=== PATIENT | male | born 1995 | race African-American/Black ===

== ENCOUNTER 2022-01-03 14:38 | Emergency (ER) | payer OTHER, SELFPAY ==
[2022-01-03] VITALS (37 sets, daily range): BP systolic 129–145; BP diastolic 64–88; PULSE 65–114; RESP 9–28; TEMP 36.8; O2SAT 95–100
--- NOTE | ~2022-01-03 | CT_ITS ---
EXAMINATION: CT cervical spine wo con DATE: 01/03/2022 16:09 INDICATION: Fall. Seizure. TECHNIQUE: Computed tomography (CT) of the cervical spine was performed without intravenous contrast. Automated exposure control and iterative reconstruction technique were employed. The dose-length pro duct was 371.08 mGy-cm. COMPARISON: None FINDINGS: Bone alignment is normal. Vertebral body heights and intervertebral disc heights are normal . The following disc levels are specifically discussed: C2-C3: There is mild bilateral uncovertebral joint osteoarthritis. There is no facet joint osteoarthr itis. There is no neural foraminal stenosis. There is no central canal stenosis. C3-C4: There is mild bilateral uncovertebral joint osteoarthritis. There is no facet joint osteoarthr itis. There is mild left neural foraminal stenosis. There is no central canal stenosis. C4-C5: There is mild bilateral uncovertebral joint osteoarthritis. There is no facet joint osteoarthr itis. There is no neural foraminal stenosis. There is no central canal stenosis. C5-C6: There is no uncovertebral joint osteoarthritis. There is no facet joint osteoarthritis. There is no neural foraminal stenosis. There is no central canal stenosis. C6-C7: There is no uncovertebral joint osteoarthritis. There is no facet joint osteoarthritis. There is no neural foraminal stenosis. There is no central canal stenosis. C7-T1: There is no uncovertebral joint osteoarthritis. There is mild bilateral facet joint osteoarthr itis. There is no neural foraminal stenosis. There is no central canal stenosis. IMPRESSION: 1. No fracture. Reviewed, dictated and finalized at location A. IMPRESSION: 1. No fracture.
--- NOTE | ~2022-01-03 | XR_ITS ---
EXAMINATION: XR chest 1V portable DATE: 01/03/2022 15:56 INDICATION: Seizure. Fall. TECHNIQUE: A single frontal view of the chest was obtained on 2 radiographs. COMPARISON: None. FINDINGS: The chest demonstrates clear lungs without pneumonia, pleural effusion, or pneumothorax. Th e heart size is normal. IMPRESSION: 1. No acute cardiopulmonary disease. Reviewed, dictated and finalized at location A.
--- NOTE | ~2022-01-03 | CT_ITS ---
EXAMINATION: CT brain wo con DATE: 01/03/2022 16:08 INDICATION: Seizure. TECHNIQUE: Computed tomography (CT) of the head was performed without intravenous contrast. The mA wa s adjusted according to patient size. Iterative reconstruction technique was employed. The dose-lengt h product was 681.00 mGy-cm. COMPARISON: None FINDINGS: There is no intracranial hemorrhage, acute infarction, or abnormal intracranial mass lesion . The ventricles are normal in size. The orbits are normal. The paranasal sinuses are clear. The mast oid air cells are normal. IMPRESSION: 1. Normal brain. Reviewed, dictated and finalized at location A. IMPRESSION: 1. Normal brain.
--- NOTE | 2022-01-03 14:45 | ECG_ITS ---
Measurements Intervals [place] Rate: 97 P: 73 W[place]: 155 QRS: 74 QRSD: 85 T: 29 QT: 351 QTc: 447 Interpretive Statements SINUS RHYTHM POSSIBLE LEFT ATRIAL ENLARGEMENT [-0.1mV P WAVE IN V1/V2] POSSIBLE LEFT VENTRICULAR HYPERTROPHY [VOLTAGE CRITERIA PLUS LAE OR QRS WIDENING] NO PREVIOUS ECG AVAILABLE FOR COMPARISON Electronically Signed On 01-04-2022 17:58:52 CDT by Rosi Gurrola M.D.
[2022-01-03 14:47] LABS: Glucose Point of Care 127 mg/dl (65-105)
[2022-01-03 16:24] LABS: Basophils Percent Auto 0.8 % (0.2-1.2); Eosinophils Absolute Auto 0.1 K/mm3 (0-0.3); Eosinophils Percent Auto 2.9 % (0-4.4); Hematocrit 46.5 % (42.0-52.0); Hemoglobin 14.7 g/dL (14.0-18.0); Immature Granulocyte Absolute 0.02 K/mm3 (0.00-0.031); Immature Granulocyte Percent A 0.4 % (0-0.5); Lymphocytes Absolute Auto 1.86 K/mm3 (0.9-3.2); Lymphocytes Percent Auto 38.8 % (18.3-44.2); Mean Corpuscular HGB Conc 31.6 g/dl (32-36); Mean Corpuscular Hemoglobin 27.5 pg (26-34); Mean Corpuscular Volume 86.9 fl (80-100); Mean Platelet Volume 10.8 fl (7.4-10.4); Monocytes Absolute Auto 0.5 K/mm3 (0.1-0.6); Monocytes Percent Auto 10.9 % (2.6-8.5); Neutrophils Absolute Auto 2.2 K/mm3 (1.3-6.7); Neutrophils Percent Auto 46.2 % (45.5-73.1); Platelet Count Result 211 k/mm3 (150-375); Red Blood Count 5.35 M/mm3 (4.6-6.20); Red Cell Distribution Width 13.9 % (11.5-14.5); White Blood Count 4.8 K/mm3 (4.5-10.0)
--- NOTE | 2022-01-03 16:57 | PC.NURSE ---
C collar removed by
--- NOTE | 2022-01-03 17:06 | ED.SEIZURE ---
HPI - Seizure General Chief Complaint: Seizure <Howie Johnson DO - Last Filed: 01/03/22 21:10> Stated Complaint: seizure <Howie Johnson DO - Last Filed: 01/03/22 21:10> Time Seen by Provider: 01/03/22 15:45 <Howie Johnson DO - Last Filed: 01/03/22 21:10> Source: RN notes reviewed <Howie Johnson DO - Last Filed: 01/03/22 21:10> History of Present Illness HPI Narrative: Patient presents emergency department via EMS for seizure.. The patient was found having active seizure at school today. EMS was called when EMS arrived the patient was postictal he had a second seizure in route was given Valium 5 mg at that time since that time the patient's been postictal in the emergency department. The patient is able to wake up enough to tell me his name and a few statements and fell back asleep he is able to tell me is on Keppra 500 mg twice a day which she has been taking with last dose this morning <Howie Johnson DO - Last Filed: 01/03/22 21:10> Related Data Home Medications: Home Medications Medication Instructions Recorded Confirmed levetiracetam 500 mg PO BID 01/03/22 <Howie Johnson DO - Last Filed: 01/03/22 21:10> Allergies/Adverse Reactions: Allergies Allergy/AdvReac Type Severity Reaction Status Date / Time No Known Allergies Allergy Verified 01/03/22 17:40 <Howie Johnson DO - Last Filed: 01/03/22 21:10> Review of Systems Review of Systems: Gen.: Denies fevers or chills ENT: Denies facial pain Respiratory: Denies shortness of breath CV: Denies chest pain GI: Denies abdominal pain nausea, emesis Musculoskeletal: Denies back pain or muscle pain Neuro: See HPI Skin: Denies rash Except as documented, all other systems reviewed and negative limited secondary to postictal <Howie Johnson DO - Last Filed: 01/03/22 21:10> PMFSH Past Medical History Medical History: Medical History (Updated 01/03/22 @ 21:10 by Howie Johnson DO) Epilepsy <Howie Johnson DO - Last Filed: 01/03/22 21:10> Social History Social History: Social History (Updated 01/03/22 @ 17:08 by Howie Johnson DO) Smoking status: Never smoker <Howie Johnson DO - Last Filed: 01/03/22 21:10> Exam Narrative: APPEARANCE: Lying in bed opens eyes to verbal stimuli able to answer some questions and fall back asleep EYES: PERRL HEENT: Normocephalic, atraumatic, OMM Neck: C-collar present no midline tenderness to palpation RESPIRATORY: No respiratory distress Clear to auscultation bilaterally with no rhonchi wheezing or rales. CARDIOVASCULAR: Regular rate and rhythm without murmurs rubs or gallops. ABDOMINAL: Soft, nontender, nondistended, no rebound or guarding MUSCULOSKELETAl: Moves all extremities. No clubbing, cyanosis or edema. NEURO: Awake and alert x 2. Following commands, speech normal, no focal deficits SKIN:: Warm, dry. No rashes lesions or abrasions PSYCHIATRIC: Normal affect/mood, <Howie Johnson DO - Last Filed: 01/03/22 21:10> Course Course Emergency Course: Patient is awake and alert x3 states that he is seen by Dr. Farrell at [facility] is on Keppra 500 twice a day denies missing any doses Called and discussed with Dr. Farrell recommends patient be low given the 1000 mg of Keppra at this time and placed on 1000 g twice a day Proximally 45 minutes after having Keppra patient had a third seizure this time with 3 seizures will admit for observation no neurology at [facility] at this time and will transfer <Howie Johnson DO - Last Filed: 01/03/22 21:10> Consultations Consultation #1: Received signout on the patient pending accepting provider at [facility]. Dr. Garcia accepted for transfered for further evaluation, patient remained stable throught out the remainder of his ER stay <Abram Robins MD - Last Filed: 01/04/22 18:58> Date: 01/04/22 <Abram Robins MD - Last Filed: 01/04
[2022-01-03] MEDS: SODIUM CHLORIDE 0.9% IV 1,000 ML 999 ML IV CONT (17:13)
[2022-01-03 17:22] LABS: Alanine Aminotransferase 21 U/L (4-50); Albumin Level 4.5 g/dL (3.5-5.1); Alkaline Phosphatase 70 U/L (38-126); Anion Gap 5 mmol/L (8-16); Aspartate Amino Transferase 34 U/L (17-59); Bilirubin,Total 0.5 mg/dL (0.2-1.3); Blood Urea Nitrogen 14 mg/dL (9-20); Calcium 8.7 mg/dL (8.4-10.2); Carbon Dioxide 27 mmol/L (22-30); Chloride 102 mmol/L (98-107); Estimated CRCL calculation 107 ml/min; Estimated Glomerular Filt Rate > 60; Glucose 116 mg/dL (65-110); Potassium 4.6 mmol/L (3.4-5.0); Sodium 134 mmol/L (137-145)
[2022-01-03] MEDS: Please add drug allergy info to patient profile. 1 EACH XX (17:28)
[2022-01-03 17:30] LABS: Add Urine Microscopic? YES; Appearance Urine Clear (Clear); Bilirubin Urine Negative (Negative); Blood Urine 2+ (Negative); Color Urine Yellow (Yellow); Glucose Urine UA Negative (Negative); Ketones Urine Negative (Negative); Leukocyte Esterase Ur Negative LEU/UL (Negative); Mucus Urine Rare /lpf; Nitrate Urine Negative (Negative); Protein Urine Negative (Negative); Specific Grav Ur 1.019 (1.001-1.035); Squamous Epithelial Cell Urine Rare /hpf (Few); Urobilinogen Urine Negative mg/dL (<2.0); WBC Urine 0-3 /hpf
[2022-01-03] MEDS: levETIRAcetam 1000MG/NACL100ML 1,000 MG/100 ML BAG 400 MG IVPB (18:46)
--- NOTE | 2022-01-03 19:17 | PC.NURSE ---
Per GF at bedside pt began seizing approx 1 min ago. Noted to sit up and move around upon arrival to room pt noted to be post ictal. Suctioning done , blood noted in mouth. ERP Elizabeth at bedside to evaluate.
[2022-01-03 21:19] LABS: SARS-CoV-2 RNA PCR Negative
[2022-01-04] VITALS (17 sets, daily range): BP systolic 67–133; BP diastolic 32–90; PULSE 67–81; RESP 8–18; TEMP 36.6; O2SAT 93–100
--- NOTE | 2022-01-04 01:10 | PC.NURSE ---
Spoke to transfer center. Patient will go to [facility] ICU once a bed is available.
--- NOTE | 2022-01-04 03:19 | PC.NURSE ---
Patient's girlfriend, Kacy, asked to be notified of the patient's room number once he is transferred. [phone]
--- NOTE | 2022-01-04 03:19 | PC.NURSE ---
assumed care of pt at this time, report taken from Maria Isabel SAVAGE. pt resting on stretcher, updated on POC.
--- NOTE | 2022-01-04 05:12 | PC.NURSE ---
Pt requesting pain medication, edp notified.
[2022-01-04] MEDS: ACETAMINOPHEN 500 MG TABLET 1000 MG PO (05:18)
[2022-01-07 08:36] LABS: Levetiracetam Keppra 13.8 mcg/mL (12.0-46.0)
== END 2022-01-04 09:52 | disposition short-term general hospital (02) ==
PROVIDERS: Emergency Provider Emergency Medicine
DX: G40.909 Epilepsy, unspecified, not intractable, without status epilepticus (principal); R94.31 Abnormal electrocardiogram [ECG] [EKG]
CPT/HCPCS: 36415; 70450; 71045; 72125; 80053; 80177; 81001; 82948; 85025; 93005; 96361; 96365; 96375; 99285; A9270; C9803; J0131; J1953; J7030; U0003; U0005